=== PATIENT | female | born 1960 | race Caucasian/White ===

== ENCOUNTER 2020-04-16 18:13 | Emergency (ER) | payer BC ==
--- NOTE | 2020-04-16 18:39 | EDM.PDOC ---
ED HPI GENERAL MEDICAL PROBLEM - General Chief Complaint: General Stated Complaint: RT KNEE Time Seen by Provider: 04/16/20 18:25 Source of Information: Reports: Patient History Limitations: Reports: No Limitations - History of Present Illness INITIAL COMMENTS - FREE TEXT/NARRATIVE: Patient comes into the emergency department with concerns of right knee pain. Patient states that she fell on the concrete approximately 5 days ago. She Landed on her right knee. Dates that she was able to get up and walk right after the injury however she did notice some immediate swelling and bruising formation. Over the course the last 5 days she states that she has been able to ambulate without difficulty and it does not hurt to walk on it. It is tender to touch over the kneecap but does not inhibit her from completing any ADLs. She comes to the emergency department because of the bruising formation that has developed distally from where she fell. She denies any increase in pain, swelling, redness or warmth to the area or distally. That it has yellow coloration as well as the bruising color to get it checked out for she is leaving the area on Saturday for vacation. She denies any other injuries or concerns. When she fell she ended up hitting her chin and arm but states those have healed without difficulty. Onset: Sudden Location: Reports: Lower Extremity, Right Quality: Reports: Other Severity: Mild Improves with: Reports: None Worsens with: Reports: None Associated Symptoms: Reports: No Other Symptoms - Related Data Allergies Allergy/AdvReac Type Severity Reaction Status Date / Time No Known Allergies Allergy Verified 12/22/15 08:03 Home Meds: Home Meds Calc/D3/Mag/Zn/Lety/Kahlil/[place] [Calcium 600 MG Plus Vit D] 1 tab PO DAILY 12/01/15 [History] Levothyroxine Sodium 1 tab PO DAILY 12/01/15 [History] Multivitamin [Multiple Vitamins] 1 each PO DAILY 12/01/15 [History] Polyethylene Glycol 3350 [MiraLAX] 17 gm PO DAILY PRN 12/01/15 [History] Terbinafine [LamISIL] 1 tab PO DAILY 12/01/15 [History] carBAMazepine [Carbamazepine] 1 tab PO DAILY 12/01/15 [History] Past Medical History Other Gastrointestinal History: TAKES MIRALAX TO 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 ENDOCERVICAL CURETTAGE Other Musculoskeletal History: ONYCHOMYCOSIS, PAIN IN RIGHT WRIST DUE TO WORK RELATED ACTIVITY Psychiatric History: Reports: Bipolar Endocrine/Metabolic History: Reports: Hypothyroidism Oncologic (Cancer) History: Reports: Thyroid - Infectious Disease History Infectious Disease History: Reports: None ED ROS GENERAL - Review of Systems Review Of Systems: Comprehensive ROS is negative, except as noted in HPI. Constitutional: Reports: No Symptoms HEENT: Reports: No Symptoms Respiratory: Reports: No Symptoms Cardiovascular: Reports: No Symptoms Endocrine: Reports: No Symptoms GI/Abdominal: Reports: No Symptoms : Reports: No Symptoms Musculoskeletal: Reports: No Symptoms Skin: Reports: No Symptoms Neurological: Reports: No Symptoms Psychiatric: Reports: No Symptoms Hematologic/Lymphatic: Reports: No Symptoms Immunologic: Reports: No Symptoms ED EXAM, GENERAL - Physical Exam Exam: See Below Exam Limited By: No Limitations General Appearance: Alert, WD/WN, No Apparent Distress Head: Atraumatic, Normocephalic Neck: Normal Inspection, Supple, Non-Tender, Full Range of Motion Peripheral Pulses: 4+: Radial (L), Radial (R), Dorsalis Pedis (L), Dorsalis Pedis (R) Back Exam: Normal Inspection, Full Range of Motion Extremities: Normal Inspection, Normal Range of Motion, Non-Tender, Normal Capillary Refill Neurological: Alert, Oriented, Normal Gait Psychiatric: Normal Affect, Normal Mood Departure - Departure Time of Disposition: 18:40 Disposition: Home, Self-Care 01 Condition: Good Clinical Impression: Right knee injury Qualifiers: Encounter type: initial encounter Qualified Code(s): S89.91XA - Unspecified injury of right lower leg, initial encounter - Discharge Information *PRESCRIPTION DRUG MONITORING PROGRAM REVIEWED*: Not Applicable *COPY OF PRESCRIPTION DRUG MONITORING REPORT IN PATIENT JUAN: Not Applicable Instructions: Knee Sprain, Adult, [id number] Referrals: Luann Gamino, [Primary Care Provider] - Forms: ED Department Discharge Additional Instructions: 1. Rest 2. wear angela wrap or nile hose stocking for support 3. Can use tylenol and ibuprofen as needed for pain and discomfort 4. Diet as tolerated 5. Activity as tolerated 6. Elevated the injured area above the level of the heart to decrease swelling and discomfort. 7. Use ice 3-4 times a day at 20-minute intervals to help with any swelling and discomfort 8. Follow-up with your primary care provider symptoms continue or to progress 9. Follow with any questions or concerns 10. Discharge information has been provided regarding your injury - Assessment/Plan Assessment:: 1. right knee sprain Plan: 1. Ice Applied to the affected limb at home prior to arrival, pt states she will do it when she gets home 2. Medication offered to the patient- patient declined 3. Education regarding angela wrap and nile hose, activity, [id number] medications, and follow-up care provided. 4. All questions and concerns addressed with the patient prior to discharge
[2020-04-16 21:38] VITALS: BP 150/82; PULSE 66
== END 2020-04-16 18:47 | disposition home or self-care (01) ==
LOC: VM.ED 18:13
DX: S89.91XA Unspecified injury of right lower leg, initial encounter (principal); E03.9 Hypothyroidism, unspecified; Z79.899 Other long term (current) drug therapy; W18.30XA Fall on same level, unspecified, initial encounter
CPT/HCPCS: 99283; 99283-GF

== ENCOUNTER 2020-08-05 16:04 | Emergency (ER) | payer BC ==
--- NOTE | 2020-08-05 16:38 | EDM.PDOC ---
ED HPI GENERAL MEDICAL PROBLEM - General Chief Complaint: General Stated Complaint: SOB Time Seen by Provider: 08/05/20 16:05 Source of Information: Reports: Patient History Limitations: Reports: No Limitations - History of Present Illness INITIAL COMMENTS - FREE TEXT/NARRATIVE: Patient comes into the emergency department with shortness of breath. Patient states that she was tested positive on July 26 for Covid19. Her symptoms at that time frame were chills, body ache, low-grade fever. 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 Patient states that she has been feeling fairly well the last 3 or 4 days. She has decrease in her amount of coughing and has able to return to her activities of daily living. However this afternoon approximately 2-1/2 hours prior to arrival to emergency department she states that she got a sudden onset of shortness of breath which she felt was prevalent on the left side. She denies any chest pain or pressure with this. She states that she had difficulty catching her breath and it has remained consistent. She does not feel it has gotten worse or better since it has began. She was going to lay down at that time frame however due to the shortness of breath she ended up taking off her bra thinking it was too constricting. However, the symptoms did not get better. Patient decided to present to the emergency department for further investigation. Patient states that her shortness of breath has been consistent since 2 PM and it has not lightened up. She denies any aggravating symptoms or doing anything that makes the symptoms less severe. Patient does feel that she cannot get a deep breath of air.Patient denies any fever, dizziness, lightheadedness, diaphoresis, nausea, vomiting, change in vision, numbness, tingling, GI upset, genitourinary concerns, or peripheral edema. Onset: Sudden Onset Time: 14:00 Duration: Hour(s): Quality: Reports: Other Severity: Mild Improves with: Reports: None Worsens with: Reports: None Context: Reports: Other Associated Symptoms: Reports: Cough - Related Data Allergies Allergy/AdvReac Type Severity Reaction Status Date / Time No Known Allergies Allergy Verified 08/05/20 16:33 Home Meds: Home Meds Levothyroxine Sodium 1 tab PO DAILY 12/01/15 [History] carBAMazepine [Carbamazepine] 1 tab PO BID 02/25/16 [History] Albuterol Sulfate [Albuterol Sulfate Hfa] 6.7 gm IH BID 5 Days hfa.aer.ad 08/05/20 [Rx] Azithromycin 500 mg PO DAILY 5 Days #5 tablet 08/05/20 [Rx] predniSONE [Prednisone] 20 mg PO DAILY 5 Days #5 tablet 08/05/20 [Rx] Past Medical History Other Gastrointestinal History: TAKES MIRALAX TO 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 ENDOCERVICAL CURETTAGE Other Musculoskeletal History: ONYCHOMYCOSIS, PAIN IN RIGHT WRIST DUE TO WORK RELATED ACTIVITY Psychiatric History: Reports: Bipolar Endocrine/Metabolic History: Reports: Hypothyroidism Oncologic (Cancer) History: Reports: Thyroid - Infectious Disease History Infectious Disease History: Reports: None ED ROS GENERAL - Review of Systems Review Of Systems: Comprehensive ROS is negative, except as noted in HPI. Constitutional: Reports: No Symptoms HEENT: Reports: No Symptoms Respiratory: Reports: Cough, Sputum Cardiovascular: Reports: No Symptoms Endocrine: Reports: No Symptoms GI/Abdominal: Reports: No Symptoms : Reports: No Symptoms Musculoskeletal: Reports: No Symptoms Skin: Reports: No Symptoms Neurological: Reports: No Symptoms Psychiatric: Reports: No Symptoms Hematologic/Lymphatic: Reports: No Symptoms Immunologic: Reports: No Symptoms ED EXAM, GENERAL - Physical Exam Exam: See Below Exam Limited By: No Limitations General Appearance: Alert, WD/WN, No Apparent Distress Ears: Normal External Exam, Normal Canal, Hearing Grossly Normal, Normal TMs Ear Exam: Bilateral Ear: Auricle Normal, Canal Normal, TM normal Head: Atraumatic, Normocephalic Neck: Normal Inspection, Supple, Non-Tender, Full Range of Motion Respiratory/Chest: No Respiratory Distress, No Accessory Muscle Use, Chest Non- Tender, Decreased Breath Sounds Cardiovascular: Normal Peripheral Pulses, Regular Rate, Rhythm, No Edema Peripheral Pulses: 4+: Radial (L), Radial (R) GI/Abdominal: Normal Bowel Sounds, Soft, Non-Tender, No Distention, No Abnormal Bruit (Female) Exam: Deferred Rectal (Female) Exam: Deferred Back Exam: Normal Inspection, Full Range of Motion Extremities: Normal Inspection, Normal Range of Motion, Non-Tender, Normal Capillary Refill Neurological: Alert, Oriented, CN II-XII Intact, Normal Cognition, Normal Gait Psychiatric: Normal Affect, Normal Mood Skin Exam: Warm, Dry, Intact, Normal Color, No Rash Course - Vital Signs Last Recorded V/S: Last Vital Signs Temp 37.1 C 08/05/20 16:10 Pulse 108 H 08/05/20 16:10 Resp 16 08/05/20 16:10 BP 144/99 H 08/05/20 16:10 Pulse Ox 94 L 08/05/20 16:10 - Orders/Labs/Meds Orders: Active Orders 24 hr Category Date Time Status EKG Documentation Completion [RC] STAT Care 08/05/20 16:25 Active RT Aerosol Therapy [RC] ASDIRECTED Care 08/05/20 16:26 Active Labs: Laboratory Tests 08/05/20 08/05/20 08/05/20 Range/Units 16:43 16:43 16:43 WBC 3.3 L (4.0-10.0) x10^3/uL RBC 4.21 (4.00-5.50) x10^6/uL Hgb 13.3 (12.0-16.0) g/dL Hct 38.0 (33.0-47.0) % MCV 90.3 (78.0-93.0) fL MCH 31.6 (26.0-32.0) pg MCHC 35.0 (32.0-36.0) g/dL RDW Coeff of Jessica 12.9 (10.0-15.0) % Plt Count 467 H (130-400) x10^3/uL Neut % (Auto) 70.2 (50.0-80.0) % Lymph % (Auto) 20.4 L (25.0-50.0) % [place] % (Auto) 9.1 (2.0-11.0) % Eos % (Auto) 0.0 (0.0-4.0) % Baso % (Auto) 0.3 (0.2-1.2) % PT (9.5-12.3) SEC INR (2.0-3.5) D-Dimer, Quantitative (<=0.58) mg/LFEU Sodium 131 L (136-145) mmol/L Potassium 3.9 (3.5-5.1) mmol/L Chloride 97 L (98-107) mmol/L Carbon Dioxide 26 (21-32) mmol/L Anion Gap 11.9 (10-20) mmol/L BUN 13 (7-18) mg/dL Creatinine 0.8 (0.55-1.02) mg/dL Est Cr Clr Drug Dosing TNP Estimated GFR (MDRD) > 60 Glucose 91 (74-106) mg/dL Lactic Acid 0.9 (0.4-2.0) mmol/L Calcium 8.3 L (8.5-10.1) mg/dL Corrected Calcium 8.86 (8.5-10.1) mg/dL Total Bilirubin 0.3 (0.2-1.0) mg/dL AST 48 H (15-37) U/L ALT 94 H (14-59) U/L Alkaline Phosphatase 111 (46-116) U/L Troponin I < 0.017 (<=0.056) ng/mL NT-Pro-B Natriuret Pep (<=125) pg/mL Total Protein 6.8 (6.4-8.2) g/dL Albumin 3.3 L (3.4-5.0) g/dL Globulin 3.5 Albumin/Globulin Ratio 0.94 08/05/20 08/05/20 08/05/20 Range/Units 16:43 16:43 16:43 WBC (4.0-10.0) x10^3/uL RBC (4.00-5.50) x10^6/uL Hgb (12.0-16.0) g/dL Hct (33.0-47.0) % MCV (78.0-93.0) fL MCH (26.0-32.0) pg MCHC (32.0-36.0) g/dL RDW Coeff of Jessica (10.0-15.0) % Plt Count (130-400) x10^3/uL Neut % (Auto) (50.0-80.0) % Lymph % (Auto) (25.0-50.0) % [place] % (Auto) (2.0-11.0) % Eos % (Auto) (0.0-4.0) % Baso % (Auto) (0.2-1.2) % PT 9.7 (9.5-12.3) SEC INR 0.9 L (2.0-3.5) D-Dimer, Quantitative 0.77 H (<=0.58) mg/LFEU Sodium (136-145) mmol/L Potassium (3.5-5.1) mmol/L Chloride (98-107) mmol/L Carbon Dioxide (21-32) mmol/L Anion Gap (10-20) mmol/L BUN (7-18) mg/dL Creatinine (0.55-1.02) mg/dL Est Cr Clr Drug Dosing Estimated GFR (MDRD) Glucose (74-106) mg/dL Lactic Acid (0.4-2.0) mmol/L Calcium (8.5-10.1) mg/dL Corrected Calcium (8.5-10.1) mg/dL Total Bilirubin (0.2-1.0) mg/dL AST (15-37) U/L ALT (14-59) U/L Alkaline Phosphatase (46-116) U/L Troponin I (<=0.056) ng/mL NT-Pro-B Natriuret Pep 99 (<=125) pg/mL Total Protein (6.4-8.2) g/dL Albumin (3.4-5.0) g/dL Globulin Albumin/Globulin Ratio Meds: Medications Discontinued Medications Generic Name Dose Route Start Last Admin Trade Name Freq PRN Reason Stop Dose Admin Albuterol/Ipratropium 3 ml 08/05/20 16:25 08/05/20 16:50 Duoneb 3.0-0.5 Mg/3 Ml NEB 08/05/20 16:26 3 ml ONETIME ONE Administration Ceftriaxone Sodium 1 gm 08/05/20 18:30 Rocephin IVPUSH 08/05/20 18:31 ONETIME ONE Dexamethasone 8 mg 08/05/20 16:27 08/05/20 16:50 Dexamethasone IM 08/05/20 16:28 8 mg ONETIME ONE Administration Iopamidol 100 ml 08/05/20 18:02 08/05/20 18:03 Isovue-300 (61%) IVPUSH 08/05/20 18:03 100 ml ONETIME ONE Administration - Re-Assessments/Exams Free Text/Narrative Re-Assessment/Exam: 08/05/20 18:23 Pt feels much better and back to her baseline post neb treatment and steroid injection. Patient does not feel the need for admission and states she will return if symptoms return or progress. VSS, alert & oriented, ambulating without support or feeling short of breath. Departure - Departure Time of Disposition: 18:40 Disposition: Home, Self-Care 01 Clinical Impression: Bronchial spasms, COVID-19, Viral pneumonia, unspecified - Discharge Information *PRESCRIPTION DRUG MONITORING PROGRAM REVIEWED*: Not Applicable *COPY OF PRESCRIPTION DRUG MONITORING REPORT IN PATIENT JUAN: Not Applicable Prescriptions: Albuterol Sulfate [Albuterol Sulfate Hfa] 6.7 gm IH BID 5 Days hfa.aer.ad Azithromycin 500 mg PO DAILY 5 Days #5 tablet predniSONE [Prednisone] 20 mg PO DAILY 5 Days #5 tablet Instructions: Bronchospasm, Adult, Albuterol inhalation aerosol, Prednisone tablets, Community-Acquired Pneumonia, Adult, Azithromycin tablets, Probiotics Referrals: Luann Gamino, [Primary Care Provider] - Forms: ED Department Discharge, ED Return to Work/School Form Additional Instructions: 1. rest 2. Take prednisone daily for 5 days 3. Use inhaler as needed 2 times a day 2 puffs each time if shortness of breath returns 4. Continue all at home medications 5. Activity and diet as tolerated 6. Can take over the counter Tylenol for any pain or discomfort 7. Follow up with PCP if symptoms continue, return, or progress 8. Call with any questions or concerns 9. Take all antibiotics as prescribed even if feeling better 10. Take a probiotic while on antibiotics to help promote healthy GI motility Sepsis Event Note (ED) - Focused Exam Vital Signs: Vital Signs Temp Pulse Resp BP Pulse Ox 08/05/20 16:10 37.1 C 108 H 16 144/99 H 94 L - My Orders Last 24 Hours: My Active Orders 08/05/20 16:25 EKG Documentation Completion [RC] STAT 08/05/20 16:26 RT Aerosol Therapy [RC] ASDIRECTED - Assessment/Plan Last 24 Hours: My Active Orders 08/05/20 16:25 EKG Documentation Completion [RC] STAT 08/05/20 16:26 RT Aerosol Therapy [RC] ASDIRECTED Assessment:: 1. shortness of breath 2. Covid-19 positive 3. pneumonia Plan: 1. Labs completed in the ER. Results reviewed with the patient 2. Dexamethasone 8mg IM given 3. Duo neb given in the ER. initially felt burning sensation during the treatment. However, shortly after she states she is feeling much better. 4. CT angio chest to rule out PE 5. Pneumonia noted on CT scan- Rocephin 1 gm IV given 6. Prednisone script sent home with patient 7. Azithromycin script sent home with the patient for pneumonia 8. Patient will be sent home with an inhaler 9. Patient and nursing staff was updated regarding the plan of care 10. Education provided the patient regarding activity, diet, rest, [id number] medication modalities, and follow-up care was provided 11. Patient and family are agreeable to the above plan of care 12. All questions and concerns were addressed with the patient and family prior to discharge
[2020-08-05] MEDS: Dexamethasone 4 MG/ML SDV IM ONE (16:50)
[2020-08-05] MEDS: Albuterol/Ipratropium 3.0-0.5 MG/3 ML Neb Soln NEB ONE (16:50)
[2020-08-05 17:19] LABS: CHLORIDE,CL 97 mmol/L (98-107); SODIUM,NA 131 mmol/L (136-145)
[2020-08-05 17:20] LABS: ANION GAP 11.9 mmol/L (10-20)
[2020-08-05 17:33] VITALS: BP 144/99; PULSE 108
[2020-08-05] MEDS: Iopamidol 612 MG/ML 100 ML Bottle IVPUSH ONE (18:03)
--- NOTE | 2020-08-05 18:29 | CT ---
[id number] CT/CTA Chest EXAM: CT ANGIOGRAM CHEST INDICATION: SUDDEN ONSET SHORTNESS OF BREATH. COMPARISON: None. DISCUSSION: The pulmonary arteries are normal in appearance with no emboli identified. There are numerous predominantly peripherally based groundglass densities seen bilaterally. No confluent airspace consolidation. No suspicious pulmonary nodules or masses. No pleural or pericardial effusion. Normal heart size. No mediastinal, hilar or axillary lymphadenopathy. The imaged upper abdomen and osseous structures are unremarkable. IMPRESSION: 1. No evidence of acute pulmonary bones in. 2. Multiple predominantly peripherally based groundglass densities scattered throughout the lungs bilaterally. These are likely infectious/inflammatory in nature as can be seen with atypical/viral pneumonia. Deuce Cavazos DO 08/05/20 1828 Thank you for allowing us to participate in the care of your patient.
[2020-08-05] MEDS: cefTRIAXone 1 GM Vial IVPUSH ONE (18:45)
== END 2020-08-05 19:00 | disposition home or self-care (01) ==
LOC: VM.ED 16:04
DX: U07.1 COVID-19 (principal); J98.01 Acute bronchospasm; J12.89 Other viral pneumonia; E03.9 Hypothyroidism, unspecified; Z79.899 Other long term (current) drug therapy
CPT/HCPCS: 36415; 71275; 80053; 83605; 83880; 84484; 85025; 85379; 85610; 93005; 94640; 96372; 96374; 99284; 99285-25; J0696; J1100; J7620-GY; Q9967

== ENCOUNTER 2021-06-08 08:28 | Day surgery (SDC) | payer BC ==
[~2021-06-08 08:28] MED LIST: Lactated Ringers 1,000 ML IV SCH
[2021-06-08] MEDS ORDERED: fentaNYL 100 MCG/2 ML SDV ONE (10:03)
[2021-06-08] MEDS ORDERED: Propofol 200 MG/20 ML SDV ONE (10:03)
[2021-06-08 12:13] VITALS: BP 137/79; PULSE 59
--- NOTE | 2021-06-13 11:36 | OR ---
PRE-OPERATIVE DIAGNOSES: Positive family history of colon cancer in mother who was diagnosed at age 76. Last colonoscopy was normal 5 years ago. POST-OPERATIVE DIAGNOSES: 1. Tortuous colon, but otherwise normal. 2. Normal-appearing distal ileum. PROCEDURE: Colonoscopy. SURGEON: Satya Murguia M.D. ANESTHESIA: Monitored anesthesia care. BOWEL PREP: Good. Marisa is a 60-year-old female who was brought to the endoscopy suite after discussing risks and benefits of the procedure. Informed consent was obtained for conscious sedation and colonoscopy with or without biopsy and/or polypectomy. We also discussed possibility of missed lesions. Pre-procedure exam was unremarkable. IV, oxygen, and monitors were placed. The patient was placed in the left lateral decubitus position. Sedation was administered and a digital rectal exam was performed and unremarkable. Colonoscope was passed into the rectum and slowly advanced all the way to the cecum. Patient did have rather tortuous colon which did require some scope maneuvering and abdominal pressure. Cecum was viewed and photographed. Ileocecal valve was intubated and distal ileum was normal in appearance. The colonoscope was slowly withdrawn and the mucosa was closed observed in a direct circumferential manner. The ascending colon was unremarkable. The transverse colon was unremarkable. The descending colon was unremarkable. The sigmoid colon was unremarkable. Retroflexion was performed and rectal mucosa was unremarkable. Scope was removed. The patient tolerated the procedure well. The patient was monitored until that baseline status. Discharge instructions were reviewed and the patient was discharged in good condition. COMPLICATIONS: None. TOTAL TIME: 22 minutes. ESTIMATED BLOOD LOSS: None. RECOMMENDATIONS/FOLLOW-UP: Given the positive family history of colon cancer in mother, I would recommend repeating again in 5 years. I would like to kindly thank Luann Gamino for this referral. DMB: 06/08/2021 12:03:26 MODL: 06/08/2021 19:08:37 /[id number]
== END 2021-06-08 12:55 | disposition home or self-care (01) ==
LOC: VM.SDS 08:28
PROVIDERS: ATTEND Family Medicine
DX: Z12.11 Encounter for screening for malignant neoplasm of colon (principal); K63.89 Other specified diseases of intestine; E89.0 Postprocedural hypothyroidism; Z80.0 Family history of malignant neoplasm of digestive organs; Z85.850 Personal history of malignant neoplasm of thyroid
CPT/HCPCS: 00812; J2704; J3010; J7120

== ENCOUNTER 2023-05-20 12:41 | Emergency (ER) | payer BC ==
[2023-05-20 13:16] LABS: BASOPHILS PERCENT AUTO 0.6 % (0.2-1.2); EOSINOPHILS ABSOLUTE AUTO 0.1 x10^3/uL (0.0-0.5); HEMATOCRIT 36.4 % (33.0-47.0); HEMOGLOBIN 13.2 g/dL (12.0-16.0); LYMPHOCYTES ABSOLUTE AUTO 1.1 x10^3/uL (1.0-4.8); LYMPHOCYTES PERCENT AUTO 31.8 % (25.0-50.0); MEAN CORPUSCULAR HEMOGLOBIN 36.1 pg (26.0-32.0); MEAN CORPUSCULAR HGB CONC 36.3 g/dL (32.0-36.0); MEAN CORPUSCULAR VOLUME 99.5 fL (78.0-93.0); MONOCYTES ABSOLUTE AUTO 0.3 x10^3/uL (0.0-0.8); MONOCYTES PERCENT AUTO 7.5 % (2.0-11.0); NEUTROPHILS ABSOLUTE AUTO 2.1 x10^3/uL (1.8-7.7); NEUTROPHILS PERCENT AUTO 58.1 % (50.0-80.0); PLATELET COUNT,PLT 416 x10^3/uL (130-400); RED BLOOD CELL COUNT 3.66 x10^6/uL (4.00-5.50); WHITE BLOOD CELL COUNT,WBC 3.6 x10^3/uL (4.0-10.0)
[2023-05-20 13:37] VITALS: PULSE 94
[2023-05-20 13:46] LABS: A/G RATIO 1.03; ALBUMIN 3.8 g/dL (3.4-5.0); BILIRUBIN TOTAL 0.4 mg/dL (0.2-1.0); C-REACTIVE PROTEIN 0.28 mg/dL (<=0.30); CALCIUM 8.8 mg/dL (8.5-10.1); CREATININE 0.7 mg/dL (0.55-1.02); EST CRCL DRUG DOSING (CG) 65.06 mL/min; POTASSIUM,K 3.5 mmol/L (3.5-5.1); PROTEIN TOTAL,TP 7.5 g/dL (6.4-8.2); TSH ULTRASENSITIVE 2.51 uIU/mL (0.358-3.74)
[2023-05-20 13:48] LABS: ANION GAP 13.5 mmol/L (5-15)
[2023-05-20 14:52] VITALS: BP 134/94
== END 2023-05-20 14:28 | disposition home or self-care (01) ==
LOC: VM.ED 12:41
DX: I16.0 Hypertensive urgency (principal); I10 Essential (primary) hypertension; E03.9 Hypothyroidism, unspecified; Z86.16 Personal history of COVID-19; Z79.82 Long term (current) use of aspirin; Z79.899 Other long term (current) drug therapy
CPT/HCPCS: 36415; 71046; 80053; 84443; 84484; 85025; 86140; 93005; 93010; 99284; 99285

== ENCOUNTER 2023-05-21 06:30 | Emergency (ER) | payer BC ==
[2023-05-21 06:59] VITALS: PULSE 107
[2023-05-21] MEDS: cloNIDine 0.1 MG Tab PO ONE ×2 (07:04→08:58)
[2023-05-21 09:45] LABS: CORONAVIRUS COVID-19 NAA NEGATIVE (NEGATIVE); INFLUENZA A NAA NEGATIVE (NEGATIVE); INFLUENZA B NAA NEGATIVE (NEGATIVE); RESPIRATORY SYNCYTIAL VIR NAA NEGATIVE (NEGATIVE)
[2023-05-21 11:04] VITALS: BP 155/83
== END 2023-05-21 10:19 | disposition home or self-care (01) ==
LOC: VM.ED 06:30
DX: I10 Essential (primary) hypertension (principal); E03.9 Hypothyroidism, unspecified; Z79.82 Long term (current) use of aspirin; Z79.899 Other long term (current) drug therapy; Z20.822 Contact with and (suspected) exposure to COVID-19
CPT/HCPCS: 0241U; 93005; 93010; 99283; 99284; A9270-GY